=== PATIENT | male | born 1990 | race Two or more races ===

== ENCOUNTER 2023-10-20 03:08 | Emergency (ER) | payer MEDICAID, OTHER ==
[~2023-10-20] VITALS: Ht 172.7 cm; Wt 105.6 kg
[2023-10-20 03:52] VITALS: BP 162/104; PULSE 72; RESP 18; TEMP 97.1; O2SAT 95
[2023-10-20] MEDS ORDERED: PRED20TA2 PO (07:00)
[2023-10-20] MEDS ORDERED: AZIT500T66 PO (07:00)
== END 2023-10-20 07:11 | disposition home or self-care (01) ==
LOC: ER 03:08
DX: J03.90 Acute tonsillitis, unspecified (principal); Z79.52 Long term (current) use of systemic steroids
CPT/HCPCS: 71045